=== PATIENT | female | born 1960 | race Caucasian/White ===

== ENCOUNTER → 2017-12-09 11:52 | Outpatient (CLI) | payer OTHER, MEDICAID, SELFPAY ==
[2017-12-09 14:31] LABS: RBC Urine None Seen (0-5/HPF)
[2017-12-09 14:53] LABS: Appearance Urine UA CLEAR; Bilirubin Urine UA NEGATIVE (NEGATIVE); Color Urine UA YELLOW; Glucose Urine UA NEGATIVE (Normal); Ketones Urine UA NEGATIVE (NEGATIVE); Leukocyte Esterase Urine UA 1+ (NEGATIVE); Nitrite Urine UA Negative (Negative); Occult Blood Urine UA TRACE-INTACT (Negative); Protein Urine UA NEGATIVE (Negative); Specific Gravity Urine UA 1.015 (1.000-1.035); Urobilinogen Urine UA 0.2 E.U./dL (0.2)
[2017-12-09 14:58] LABS: Bacteria Urine Moderate (10-30); Culture Indicated Urine Cult Not Indicated; Squamous Epithelial Cell Urine 5-10 /HPF; WBC Urine 10-30/HPF (0-5/HPF)
== END ==
PROVIDERS: Family Provider Family Medicine; PCP Family Medicine; Visit Provider Internal Medicine
DX: R10.9 Unspecified abdominal pain (principal); R30.0 Dysuria
CPT/HCPCS: 81001

== ENCOUNTER → 2017-12-10 09:18 | Outpatient (CLI) | payer OTHER, MEDICAID, SELFPAY | PROVIDERS: Family Provider Family Medicine; PCP Family Medicine; Visit Provider Internal Medicine | DX: R30.0 Dysuria (principal) | CPT/HCPCS: 87077; 87086; 87186 ==

== ENCOUNTER 2017-12-19 09:20 | Emergency (ER) | payer OTHER, MEDICAID, SELFPAY ==
[2017-12-19 09:23] VITALS: BP 156/77; PULSE 97; RESP 14; TEMP 37.2; O2SAT 99; BMI 34.9
[2017-12-19 09:42] LABS: Appearance Urine UA SL CLOUDY; Bilirubin Urine UA NEGATIVE (NEGATIVE); Color Urine UA YELLOW; Glucose Urine UA NEGATIVE (Normal); Ketones Urine UA NEGATIVE (NEGATIVE); Leukocyte Esterase Urine UA 3+ (NEGATIVE); Nitrite Urine UA Negative (Negative); Occult Blood Urine UA TRACE-LYSED (Negative); Protein Urine UA NEGATIVE (Negative); Specific Gravity Urine UA <=1.005 (1.000-1.035); Urobilinogen Urine UA 0.2 E.U./dL (0.2)
[2017-12-19 09:48] LABS: Bacteria Urine Many (>30); Culture Indicated Urine Cult Not Indicated; RBC Urine 1-5/HPF (0-5/HPF); Squamous Epithelial Cell Urine 5-10 /HPF; WBC Urine 30-100/HPF (0-5/HPF)
[2017-12-19 10:29] VITALS: BP 117/64; PULSE 77; RESP 18; TEMP 36.7; O2SAT 100
--- NOTE | 2017-12-19 10:52 | ED_ITS ---
HPI - Female Genitourinary General Chief complaint: Urogenital-Female Stated complaint: UTI History of Present Illness HPI Narrative: HPI 57-year-old female presents for evaluation of recurrent dysuria and urinary frequency of 3 days duration after completing 7 days of macribid for a previously diagnosed UTI, denies flank pain, fevers, chills. No history of kidney stones. M/S/F/SocHx notable for: please see HPI; remainder reviewed with patient and in chart. ROS: Negative constitutional, eye, cardiovascular, pulmonary, GI, , MSK, skin , neurologic, psychiatric, endocrine unless noted in the HPI. Exam HR 77, BP 117/64, RR 18, T 98.1 ?F, SaO2 100 % on room air; at 10:29AM. Gen: Pleasant, non-toxic appearing, resting comfortably. HEENT: NC, AT, PEERL, EOMI. Resp: Clear to auscultation bilaterally, normal work of breathing, no accessory muscle usage. Card: Regular rate and rhythm with no murmurs, rubs, or gallops, extremities warm and well perfused. GI: Non-tender to palpation throughout all quadrants, no focal tenderness at McBurney's point, negative Ramesh's sign, non-distended, no rebound or guarding. : No suprapubic tenderness to palpation. No CVA tenderness to percussion bilaterally. MSK: No visible deformities, strength and tone without visually appreciable deficit. Skin: Normal color with no visible lesions. Neuro: AO x 3, no facial asymmetry, vision and hearing WNL. Psych: Mood and affect appropriate. Labs / Imaging: UA - 3+ leukocyte esterase, negative nitrates, 30-100 WBCs, 5-10 squamous epithelial cells, many bacteria. MDM Previous chart, nursing note, labs, imaging, and vitals reviewed. A: 57-year-old female presents for evaluation of recurrent dysuria and urinary frequency of 3 days duration after completing 7 days of macribid for a previously diagnosed UTI, denies flank pain, fevers, chills. DDx: UTI, ureterolithiasis, pyelonephritis, lobar nephronia, perinephric abscess. Evaluation: history, labs, exam consistent with uncomplicated cystitis, given the absence of flank pain, fevers, or further symptoms strongly doubt ureterolithiasis, lobar nephronia or perinephric abscess. Patient prescribed Keflex 500 mg QID x 10 days and discharge with PCP follow-up recommended. Impression: UTI (please reference below for remainder of encounter information) Related Data Home Medications Medication Instructions Recorded Confirmed cyclobenzaprine 10 mg PO HSP PRN 12/19/17 12/19/17 ranitidine HCl 150 mg PO BID PRN 12/19/17 12/19/17 Previous Rx's Medication Instructions Recorded albuterol sulfate [Ventolin HFA] 1 puff INH Q6HP PRN #1 inh 03/24/17 omeprazole 40 mg PO QDAY #90 cap 04/16/17 Allergies Allergy/AdvReac Type Severity Reaction Status Date / Time hydrocodone [HYDROCODONE] AdvReac Unknown Itching Verified 12/19/17 09:26 PFS Surgical History History of tonsillectomy Status post delivery Status post vaginal hysterectomy (11/27/14) Social History Smoking Status: Former smoker Exam Initial Vital Signs Initial Vital Signs: Vital Signs Temperature 98.9 F 12/19/17 09:23 Pulse Rate 97 H 12/19/17 09:23 Respiratory Rate 14 12/19/17 09:23 Blood Pressure 156/77 H 12/19/17 09:23 Pulse Oximetry 99 12/19/17 09:23 Course Orders Ordered: ED Orders 12/19/17 09:30 Urinalysis and Microscopic Stat Vital Signs - 8 hr 12/19/17 09:23 12/19/17 10:29 Temperature 98.9 F 98.1 F Pulse Rate 97 H 77 Respiratory Rate 14 18 Blood Pressure 156/77 H Blood Pressure [Right Arm] 117/64 Pulse Oximetry 99 100 MDM - Female Genitourinary Lab Data Lab Results 12/19/17 Range/Units 09:30 Urine Color Yellow Urine Appearance Sl cloudy Urine pH 5.0 (4.5-8.0) Ur Specific [place] <=1.005 (1.000-1.035) Urine Protein Negative (Negative) Urine Glucose (UA) Negative (Normal) g/dL Urine Ketones Negative (NEGATIVE) Urine Occult Blood Trace-lysed (Negative) Urine Nitrate Negative (Negative) Urine Bilirubin Negative (NEGATIVE) Urine Urobilinogen 0.2 (0.2) E.U./dL Ur Leukocyte Esterase 3+ H (NEGATIVE) Urine RBC 1-5/hpf (0-5/HPF) Urine WBC 30-100/hpf H (0-5/HPF) Ur Squamous Epith Cells 5-10 /hpf H Urine Bacteria Many (>30) H (None) Ur Culture Indicated? Cult not indicated Micro UA Comment Not Reportable Discharge Plan Departure Prescriptions: No Action albuterol sulfate [Ventolin HFA] 90 MCG/PUFF HFA aerosol inhaler 1 puff INH Q6HP PRNQty: 1 RF: 2 omeprazole 40 MG capsule,delayed release(DR/EC) 40 mg PO QDAY Qty: 90 RF: 3 cyclobenzaprine 10 MG tablet 10 mg PO HSP PRN (Reason: Muscle Pain) RF: 0 ranitidine HCl 150 MG tablet 150 mg PO BID PRN (Reason: gerd) RF: 0
== END 2017-12-19 11:10 | disposition home or self-care (01) ==
PROVIDERS: Emergency Provider Emergency Medicine; PCP Family Medicine
DX: N39.0 Urinary tract infection, site not specified (principal)
CPT/HCPCS: 81001; 99282; 99283

== ENCOUNTER → 2018-07-15 12:48 | Outpatient (CLI) | payer OTHER, MEDICAID, SELFPAY ==
--- NOTE | 2018-07-15 12:52 | DI.US.S_ITS ---
PROCEDURE: US ABDOMEN COMPLETE INDICATIONS: RIGHT UPPER QUADRANT PAIN TECHNIQUE: Real-time scanning was performed of the abdominal and retroperitoneal organs, with image documentation. COMPARISON: [facility], , ABDOMEN COMPLETE, 05/13/2016, 11:37. [facility], [place], HEPATOBILIARY SCAN WITH CCK, 05/19/2016, 8:21. FINDINGS: Liver: Liver is normal in size and demonstrates diffuse increased echotexture. Gallbladder: Again noted is a 4 mm non-mobile hyperechoic nodule along the lateral wall of the gallbladder, consistent with a polyp. It appears unchanged in size compared to the last examination. Biliary ducts: Intrahepatic bile ducts are non-dilated. Extrahepatic bile duct caliber measures 5 mm. Normal is 6-7 mm or less in diameter, or 10 mm or less post-cholecystectomy. Pancreas: The pancreas is suboptimally visualized and demonstrates increased echotexture. Spleen: Spleen is normal in size and homogeneous in echotexture. Kidneys: Kidneys are normal in size and echotexture. Right kidney measures 9.8 cm long; left kidney measures 11.3 cm long. No hydronephrosis or nephrolithiasis. No solid masses. Aorta: Visualized aorta is normal in caliber at less than 3 cm. Iliacs: Proximal common iliac arteries are normal in caliber at less than 2.5 cm. IVC: Intrahepatic inferior vena cava is patent. Miscellaneous: No free abdominal fluid. IMPRESSION: 1. Diffusely increased hepatic echotexture. This finding is most likely secondary to hepatic fatty infiltration although other hepatocellular disease may have a similar appearance. Recommend clinical correlation. 2. Stable 4 mm gallbladder polyp. 3. Pancreas is suboptimally visualized. Dictated by: Orquidea Lockhart M.D. on 07/15/2018 at 16:38 Approved by: Orquidea Lockhart M.D. on 07/15/2018 at 16:46
[2018-07-15 13:45] LABS: Add Manual Diff / Slide Review NO; Basophils Absolute Auto 100 /uL (0-100); Basophils Percent Auto 0.9 % (0-2); Eosinophils Absolute Auto 200 /uL (0-450); Hematocrit 38.2 % (36-46); Hemoglobin 12.3 g/dL (12.0-16.0); Lymphocytes Absolute Auto 3600 /uL (1100-4500); Lymphocytes Percent Auto 45.9 % (25-40); Mean Corpuscular HGB Conc 32.1 % (30-36); Mean Corpuscular Hemoglobin 26.2 PG (26-34); Mean Corpuscular Volume 81.6 fL (80-100); Monocytes Absolute Auto 400 /uL (0-900); Monocytes Percent Auto 5.4 % (3-14); Neutrophils Absolute Auto 3600 /uL (1500-7000); Neutrophils Percent Auto 45.8 % (50-75); Platelet Count 289 X10^3/uL (150-400); Red Blood Cell Count 4.68 X10^6/uL (4.0-5.2); Red Cell Distribution Width 14.7 % (11.6-14.8); White Blood Cell Count 7.8 X10^3/uL (4.5-11.0)
[2018-07-15 16:33] LABS: Alanine Aminotransferase 41 IU/L (9-52); Albumin 4.4 g/dL (3.5-5.0); Alkaline Phosphatase 120 U/L (38-126); Aspartate Aminotransferase 31 IU/L (14-36); BUN Creatinine Ratio 18.3 (6-22); Bilirubin Total 0.6 mg/dL (0.2-1.3); Blood Urea Nitrogen 11 mg/dL (7-17); Calcium 9.8 mg/dL (8.4-10.2); Carbon Dioxide 24 mmol/L (22-32); Chloride 105 mmol/L (98-107); Estimated Glomerular Filt Rate > 60.0 mL/min (>60); Glucose 80 mg/dL (70-100); Potassium 4.2 mmol/L (3.4-5.1); Sodium 140 mmol/L (137-145); Total Protein 7.9 g/dL (6.3-8.2)
[2018-07-15 16:34] LABS: Albumin Globulin Ratio 1.3 (1.0-2.8); Cholesterol 215 mg/dL (140-199); Globulin 3.5 g/dL (1.7-4.1); HDL Cholesterol 48 mg/dL (40-60); HEMOLYSIS 39 (0-50); LDL Cholesterol Calculated 138 mg/dL (<100); Triglycerides 146 mg/dL (35-150)
[2018-07-15 16:41] LABS: TSH w/ Reflex to FT4 1.13 uIU/mL (0.47-4.68)
== END ==
PROVIDERS: PCP Family Medicine; Visit Provider Family Medicine
DX: R10.11 Right upper quadrant pain (principal); K76.0 Fatty (change of) liver, not elsewhere classified; K82.4 Cholesterolosis of gallbladder
CPT/HCPCS: 36415; 76700; 80053; 80061; 84443; 85025

== ENCOUNTER → 2018-08-03 10:08 | Outpatient (CLI) | payer OTHER, MEDICAID, SELFPAY ==
--- NOTE | 2018-08-03 10:10 | DI.MG.S_ITS ---
BILATERAL DIGITAL SCREENING MAMMOGRAM 3D/2D WITH CAD: 08/03/2018 CLINICAL: Routine screening. Family history of breast cancer. Comparison is made to exams dated: 11/15/2014 mammogram - , 11/22/2012 mammogram, and 11/19/2009 mammogram - [facility]. There are scattered fibroglandular elements in both breasts. Current study was also evaluated with a Computer Aided Detection (CAD) system. There are benign calcifications in both breasts. No significant masses, calcifications, or other findings are seen in either breast. There has been no significant interval change. IMPRESSION: There is no mammographic evidence of malignancy. A 1 year screening mammogram is recommended. This exam was interpreted at Station ID: [id number]. NOTE: For mammograms, a report in lay terms will be sent to the patient. Approximately 15% of breast malignancies will not be visualized mammographically. In the management of a palpable breast mass, a negative mammogram must not discourage biopsy of a clinically suspicious lesion. Electronically Signed By: Boris ortega/alix:08/03/2018 11:25:28 letter sent: Normal Exam ACR BI-RADS Category 2: Benign Finding(s) 3342F
== END ==
PROVIDERS: PCP Family Medicine; Visit Provider Family Medicine
DX: Z12.31 Encounter for screening mammogram for malignant neoplasm of breast (principal); Z80.3 Family history of malignant neoplasm of breast
CPT/HCPCS: 77063; 77067

== ENCOUNTER → 2018-08-17 12:42 | Outpatient (CLI) | payer OTHER, MEDICAID, SELFPAY ==
[2018-08-17 13:21] LABS: Influenza A and B by PCR Rapid Negative (Negative)
== END ==
PROVIDERS: PCP Family Medicine; Visit Provider Registered Nurse
DX: R50.9 Fever, unspecified (principal)
CPT/HCPCS: 87400

== ENCOUNTER → 2018-08-24 10:55 | Outpatient (CLI) | payer OTHER, MEDICAID, SELFPAY ==
[2018-08-24 13:01] LABS: Ferritin 31.2 ng/mL (11.1-264)
[2018-08-25 14:41] LABS: Ceruloplasmin 32 mg/dL (18-53)
[2018-08-26 16:03] LABS: Hepatitis A Antibody IgM NONREACTIVE (NONREACTIVE); Hepatitis Acute Panel Interp 0.01; Hepatitis B Core Antibody IgM NONREACTIVE (NONREACTIVE); Hepatitis B Surface Antigen NONREACTIVE (NONREACTIVE); Hepatitis C Antibody NONREACTIVE
[2018-08-26 19:00] LABS: ANA Screen, IFA Negative (Negative)
== END ==
PROVIDERS: PCP Family Medicine; Visit Provider Family Medicine
DX: K76.0 Fatty (change of) liver, not elsewhere classified (principal)
CPT/HCPCS: 36415; 80074; 82390; 82728; 86038

== ENCOUNTER 2018-10-14 07:43 | Day surgery (SDC) | payer OTHER, MEDICAID, SELFPAY ==
[2018-09-13 08:22] VITALS: BMI 34.5
[2018-10-14] VITALS (14 sets, daily range): BP systolic 115–185; BP diastolic 66–94; PULSE 67–95; RESP 7–18; TEMP 36.1–36.6; O2SAT 93–100; BMI 34.0
--- NOTE | 2018-10-14 | PATH_ITS ---
[facility] Accession Number: [id number] . 01 Material submitted: . gallbladder - GALLBLADDER . 02 Diagnosis: Gallbladder, Cholecystectomy: Chronic cholecystitis with cholelithiasis and cholesterolosis. No evidence of dysplasia or malignancy. MRV/10/18/2018 . 02 Electronically signed: . Neris Rodríguez MD, Pathologist NPI- [id number] . 01 Gross description: . Received in formalin, labeled gallbladder, is an opened gallbladder (length-7.5 cm, diameter-2.2 cm) with green smooth shiny serosa and a patent cystic duct. A possible lymph node (0.4 x 0.3 x 0.2 cm) is identified. The lumen contains one pale yellow soft friable calculus (0.4 x 0.3 x 0.2 cm). The mucosa is hernandez-green with rough yellow speckles. The wall is up to 0.1 cm thick. No nodules, masses or lesions are identified. Section code: (A1) cystic duct resection margin and two serial sections from the body; (A2) two longitudinal sections from the fundus; (A3) one intact lymph node. ([id number]) /MRV . 02 Pathologist provided ICD-10: K80.60 . 02 CPT . 285414 Performed at: 01 [facility] [address] [place] [address], [place], [place] [id number] MD Bib Levy MD Phone: [phone] Performed at: 02 [facility] [address] [place], [place] [id number] MD Neris Rodríguez MD Phone: [phone]
--- NOTE | 2018-10-14 08:38 | PM.HP.1 ---
History of Present Illness Date Patient Seen: 10/14/18 Time Patient Seen: 08:38 Chief complaint: [id number] LAP NICOLA Narrative: The patient is a woman with intermittent right upper quadrant pain radiating to her flank accompanied by nausea. She had an ultrasound that suggests she has fatty infiltration of her liver and either a gallbladder polyp or an adherent stone. She is brought in for laparoscopic cholecystectomy. Patient History Medical History Asthma (Chronic) Chronic GERD (Chronic) Esophagitis (Chronic) Gastritis (Chronic) Pelvic prolapse (Chronic) Surgical History History of tonsillectomy Status post delivery Status post vaginal hysterectomy (11/27/14) Family History Mother Hypertension Heart disease Gallstones Father Hypertension Heart disease Grandmother Cancer Diabetes mellitus Grandfather Diabetes mellitus Social History marital status: household members: spouse Smoking Status: Former smoker alcohol intake: current substance use type: does not use Family & Social History Family History Mother Hypertension Heart disease Gallstones Father Hypertension Heart disease Grandmother Cancer Diabetes mellitus Grandfather Diabetes mellitus Social History: household members spouse Tobacco & Substance use: Smoking Status Former smoker alcohol intake current alcohol intake frequency holiday/special occasion Substance Use Type does not use Meds Home Medications Medication Instructions Recorded Confirmed Type omeprazole 40 mg PO QDAY #90 cap 04/16/17 09/13/18 Rx cyclobenzaprine 10 mg tablet 10 mg PO HSP PRN #10 tab 07/14/18 09/13/18 Rx albuterol sulfate HFA 90 1 puff INHALATION Q6HP PRN #1 inh 08/13/18 09/13/18 Rx mcg/actuation aerosol inhaler guaifenesin ER 1,200 mg tablet, 1,200 mg PO Q12H 08/17/18 09/13/18 History extended release 12 hr inhalational spacing device #1 each 08/17/18 08/24/18 Rx prednisone 10 mg tablet See Rx Instructions PO DAILY #40 08/17/18 09/13/18 Rx tab Allergies Allergy/AdvReac Type Severity Reaction Status Date / Time hydrocodone [HYDROCODONE] AdvReac Unknown Itching Verified 08/24/18 08:55 Review of Systems Review of Systems Denies any chest pain or heart problems. Has occasional reflux symptoms. No breathing issues at this time. She did have a cough a couple months ago. No black or bloody bowel movements. No seizures or blackouts. Exam Vital Signs (past 8 hours): - 10/14/18 08:28 Temperature 97.0 F L Pulse Rate 67 Respiratory Rate 14 Blood Pressure 115/79 Oxygen Delivery Method Room Air Narrative Exam Narrative: Very pleasant woman in no apparent distress. Obese. Lungs are clear to auscultation. No rales or rhonchi. Heart regular rate and rhythm without murmur gallop. Abdomen is protuberant and soft. Nontender at this time. No obvious hernias. The patient is alert and oriented x3. Speech rate and content are appropriate. Assessment & Plan Assessment & Plan narrative: Patient with probable symptomatic gallbladder disease and stones. Possible polyp. I discussed lap choly with her. Risks of bleeding, infection, hernia, injury to internal organs or ducts that might require a major operation to repair, and bile leakage were all discussed. She appears to understand and wishes to proceed.
[2018-10-14] MEDS: LACTATED RINGERS 1,000 ML 100 ML IV ×2 (08:40→10:21)
--- NOTE | 2018-10-14 08:42 | PM.PREOP ---
Pre-operative Note Interval Note History & Physical reviewed/Exam performed by Physician: Yes Changes to H&P: No
[2018-10-14] MEDS: CEFAZOLIN 2 GM/100 ML FROZ.PIGGY IV (08:59)
--- NOTE | 2018-10-14 09:48 | SUR.OPER ---
Supine on padded OR bed, head on pillow, arms secured on padded arm boards at <90 degrees abduction, legs uncrossed, safety belt at thigh, tape over blanket over lower legs.
[2018-10-14] MEDS: BUPIVACAINE 0.5% (PF) VIAL 30 ML INJ (09:57)
--- NOTE | 2018-10-14 10:27 | PM.OP.1 ---
Operative Date/Time/Diagnoses Date of procedure: 10/14/18 Time of procedure: 10:20 Pre-op diagnosis: Right upper abdominal pain with an ultrasound suggesting possible polyp. Post-op diagnosis: same (Patient appears to have a stone adherent to the wall of the gallbladder.) Procedure & Clinicians Procedure: Laparoscopic cholecystectomy Same procedure as scheduled: Yes Indications: Symptomatic gallbladder disease Surgeon: Rolo Rocha Click Yes if Unassisted: Yes Anesthesia Type: General Operative Notes Findings: Fairly normal appearing gallbladder with stones. Some cholesterol deposits on the surface of the gallbladder wall Closure Type: primary Specimen(s): other (Gallbladder) Prosthetic devices, grafts, tissues, transplants, or devices: None Estimated Blood Loss (mL): 5 Blood products transfused: none Procedure in detail: The patient was placed supine on the operating room table and underwent general endotracheal anesthesia. The patient was prepped and draped in the usual fashion. Local anesthetic was infiltrated near the umbilicus and curvilinear incision made and carried down through fascia into the peritoneal cavity. Stay sutures of 0 Vicryl were placed in the fascia. A 12 mm port was placed. The abdomen was insufflated. The patient was repositioned. Local anesthetic was infiltrated in 3 areas under the right costal margin and 3 incisions made followed by placing 3 5 mm ports under direct laparoscopic camera vision internally. The gallbladder was grasped and elevated. Dissection was begun near its end. A ductal structure singular nature going directly the gallbladder was out from surrounding structures. Three put clips were placed across it and was divided leaving 2 in the patient. Adjacent to this was another structure that appeared to be the artery. It went directly to the gallbladder. It was handled in divided in and exactly the same way as the duct.. The gallbladder was then dissected from its bed in the liver using cautery. There was no spillage. It was detached and removed through the umbilical port after placing it in a bag. The ports were all removed. The port sites were all irrigated. The stay sutures at the umbilicus were elevated. A 2 0 PDS suture was placed between them. The Vicryl and PDS sutures were then tied. The skin in all areas was closed with interrupted 4 0 Vicryl subcuticular stitches. Steri-Strips and Mastisol were applied. Band-Aids were placed and the patient was awakened, extubated and taken to the recovery area in good condition. After removing the gallbladder was opened and found to contain a stone that appeared to be stuck to the wall. I did not make of her search for a polyp which may also be present. Complications: none Condition: stable Disposition: PACU Plan for aftercare: Follow-up in the office
--- NOTE | 2018-10-14 10:39 | SUR.PHASEI ---
Pt stated I need air, sats in upper 90s on RA. Anterior lobes clear. 4lnc applied for comfort.
[2018-10-14] MEDS: fentaNYL 100 MCG/2 ML INJ 50 MCG IV ×3 (10:42→11:48)
[2018-10-14] MEDS: ALBUTEROL 2.5 MG/3 ML NEB (ADULT) INH (10:48)
--- NOTE | 2018-10-14 10:50 | SUR.PHASEI ---
Pt's breathing reassessed. Had reported dyspnea improved but now reports it has not improved. Albuterol neb provided.
--- NOTE | 2018-10-14 10:59 | SUR.PHASEI ---
Albuterol treatment complete. Pt reported dyspnea improved.
--- NOTE | 2018-10-14 11:13 | SUR.PHASEI ---
Dr Quesada called in OR2, notified regarding pt's continued complaints of SOB. Discussed pt status-o2 sat 985ra, rr 14, lungs clear. Place pt on nc per md and continue to monitor. 2lnc applied.
--- NOTE | 2018-10-14 11:18 | SUR.PHASEI ---
IS provided. Verbal instructions given, return demonstration performed.
--- NOTE | 2018-10-14 11:32 | SUR.PHASEI ---
Pt c/o trouble breathing again, mask applied with 7lo2.
--- NOTE | 2018-10-14 11:36 | SUR.PHASEI ---
Pt reported the o2 mask was helping her breathing.
[2018-10-14] MEDS: OXYCODONE IR 5 MG TABLET PO (11:54)
[2018-10-14] MEDS: ONDANSETRON 4 MG/2 ML INJ IV (12:19)
--- NOTE | 2018-10-14 12:41 | SUR.PHASEII ---
pt c/o nausea x1 while in phase II. Medicated with IV zofran. pt reported no longer nausated after medication given.
== END 2018-10-14 12:41 | disposition home or self-care (01) ==
PROVIDERS: PCP Family Medicine; Visit Provider Specialist
PROC: 0FT44ZZ Resection of Gallbladder, Percutaneous Endoscopic Approach (ICD-10-PCS; CPT 47562; principal; 2018-10-14 08:45)
DX: K80.10 Calculus of gallbladder with chronic cholecystitis without obstruction (principal); J45.909 Unspecified asthma, uncomplicated
CPT/HCPCS: 47562; J0690; J1885; J2405; J2704; J3010; J7613

== ENCOUNTER → 2019-11-24 08:14 | Outpatient (CLI) | payer OTHER, MEDICAID, SELFPAY ==
[2019-11-24 10:21] LABS: Add Manual Diff / Slide Review NO; Basophils Absolute Auto 100 /uL (0-100); Basophils Percent Auto 0.7 % (0-2); Eosinophils Absolute Auto 200 /uL (0-450); Eosinophils Percent Auto 2.1 % (2-4); Hematocrit 39.3 % (36-46); Hemoglobin 12.5 g/dL (12.0-16.0); Lymphocytes Absolute Auto 2700 /uL (1100-4500); Lymphocytes Percent Auto 33.9 % (25-40); Mean Corpuscular HGB Conc 31.9 % (30-36); Mean Corpuscular Hemoglobin 27.2 PG (26-34); Mean Corpuscular Volume 85.4 fL (80-100); Monocytes Absolute Auto 600 /uL (0-900); Monocytes Percent Auto 6.9 % (3-14); Neutrophils Absolute Auto 4500 /uL (1500-7000); Neutrophils Percent Auto 56.4 % (50-75); Platelet Count 295 X10^3/uL (150-400); Red Cell Distribution Width 14.3 % (11.6-14.8); White Blood Cell Count 8.1 X10^3/uL (4.5-11.0)
[2019-11-24 10:27] LABS: Alanine Aminotransferase 18 IU/L (<35); Albumin 4.1 g/dL (3.5-5.0); Albumin Globulin Ratio 1.5 (1.0-2.8); Alkaline Phosphatase 121 U/L (38-126); Aspartate Aminotransferase 20 IU/L (14-36); BUN Creatinine Ratio 14.8 (6-22); Bilirubin Total 0.8 mg/dL (0.2-1.3); Blood Urea Nitrogen 9 mg/dL (7-17); Calcium 9.9 mg/dL (8.4-10.2); Carbon Dioxide 23 mmol/L (22-32); Chloride 108 mmol/L (98-107); Cholesterol 192 mg/dL (140-199); Estimated Glomerular Filt Rate > 60.0 mL/min (>60); Globulin 2.7 g/dL (1.7-4.1); Glucose 85 mg/dL (70-100); HDL Cholesterol 51 mg/dL (40-60); HEMOLYSIS < 15 (0-50); LDL Cholesterol Calculated 116 mg/dL (<100); Potassium 4.4 mmol/L (3.4-5.1); Sodium 140 mmol/L (137-145); Total Protein 6.8 g/dL (6.3-8.2); Triglycerides 126 mg/dL (35-150)
[2019-11-24 10:56] LABS: Thyroid Stimulating Hormone 2.28 uIU/mL (0.47-4.68)
== END ==
PROVIDERS: PCP Family Medicine; Referring Provider Family Medicine; Visit Provider Family Medicine
DX: E78.5 Hyperlipidemia, unspecified (principal); K21.9 Gastro-esophageal reflux disease without esophagitis; Z13.6 Encounter for screening for cardiovascular disorders
CPT/HCPCS: 36415; 80053; 80061; 84443; 85025

== ENCOUNTER → 2020-05-21 17:01 | Outpatient (CLI) | payer OTHER, MEDICAID, SELFPAY | PROVIDERS: PCP Family Medicine; Visit Provider Physician Assistant | DX: N34.3 Urethral syndrome, unspecified (principal) | CPT/HCPCS: 87086 ==

== ENCOUNTER → 2021-12-05 13:07 | Outpatient (CLI) | payer OTHER, MEDICAID, SELFPAY ==
--- NOTE | 2021-12-05 | DI.MG.S_ITS ---
BILATERAL DIGITAL SCREENING MAMMOGRAM 3D/2D WITH CAD: 12/05/2021 CLINICAL: Routine screening. Family history of breast cancer. Comparison is made to exams dated: 08/03/2018 mammogram, 11/15/2014 mammogram - [facility], and 11/22/2012 mammogram - [facility]. There are scattered fibroglandular elements in both breasts. Current study was also evaluated with a Computer Aided Detection (CAD) system. There are benign calcifications in both breasts. No significant masses, calcifications, or other findings are seen in either breast. There has been no significant interval change. IMPRESSION: BENIGN There is no mammographic evidence of malignancy. A 1 year screening mammogram is recommended. Based on the Tyrer Cuzick model (a risk assessment model) the patient's lifetime risk is 11.9% and her 10 year risk is 4.9%. According to the ACR, ACS, and NCCN guidelines, an annual breast MRI exam along with mammogram is recommended if the patient's lifetime risk is 20% or greater. This exam was interpreted at Station ID: [id number]. NOTE: For mammograms, a report in lay terms will be sent to the patient. Approximately 15% of breast malignancies will not be visualized mammographically. In the management of a palpable breast mass, a negative mammogram must not discourage biopsy of a clinically suspicious lesion. Electronically Signed By: Rafat wylie/alix:12/05/2021 14:58:03 letter sent: Normal Exam ACR BI-RADS Category 2: Benign Finding(s) 3342F
== END ==
PROVIDERS: PCP Family Medicine; Referring Provider Family Medicine; Visit Provider Family Medicine
DX: Z12.31 Encounter for screening mammogram for malignant neoplasm of breast (principal); Z80.3 Family history of malignant neoplasm of breast
CPT/HCPCS: 77063; 77067

== ENCOUNTER → 2021-12-24 07:00 | Outpatient (CLI) | payer OTHER, MEDICAID, SELFPAY ==
--- NOTE | 2021-12-24 07:01 | DI.US.S_ITS ---
PROCEDURE: US PELVIC COMPLETE INDICATIONS: FAMILY HISTORY OVARIAN CANCER TECHNIQUE: Real-time scanning was performed of the pelvic organs, with image documentation. Additional endovaginal scanning was necessary due to incomplete visualization of the adnexal and endometrial structures by transabdominal scanning. COMPARISON: None. FINDINGS: Uterus: The uterus is surgically absent. Ovaries: The ovaries are not visualized. Other: No pathologic free abdominal or pelvic fluid. IMPRESSION: Markedly limited study. The ovaries are not visualized. If further characterization is warranted, gynecologic protocol MRI could be used. We strive to produce accurate, complete, and clear reports of imaging services. To assist us in improving patient care, this report was composed using standard report templates and voice recognition software. Therefore, it may contain abnormal punctuation, insertions and/or omissions. Occasional wrong-word or sound-alike substitutions may occur. Though we review the report and make efforts to correct it, we do recommend that the report be read carefully in proper context to recognize any text inaccuracies. Dictated by: Felisa Awad M.D. on 12/24/2021 at 9:07 Approved by: Felisa Awad M.D. on 12/24/2021 at 9:09
[2021-12-24 08:46] LABS: Add Manual Diff / Slide Review NO; Basophils Absolute Auto 100 /uL (0-100); Basophils Percent Auto 0.7 % (0-2); Eosinophils Absolute Auto 200 /uL (0-450); Eosinophils Percent Auto 2.2 % (2-4); Hematocrit 38.1 % (36-46); Hemoglobin 12.5 g/dL (12.0-16.0); Lymphocytes Absolute Auto 2200 /uL (1100-4500); Lymphocytes Percent Auto 28.1 % (25-40); Mean Corpuscular HGB Conc 32.8 % (30-36); Mean Corpuscular Hemoglobin 27.5 PG (26-34); Mean Corpuscular Volume 83.9 fL (80-100); Monocytes Absolute Auto 500 /uL (0-900); Neutrophils Absolute Auto 4900 /uL (1500-7000); Platelet Count 270 X10^3/uL (150-400); Red Blood Cell Count 4.54 X10^6/uL (4.0-5.2); Red Cell Distribution Width 13.7 % (11.6-14.8); White Blood Cell Count 7.8 X10^3/uL (4.5-11.0)
[2021-12-24 09:15] LABS: Alanine Aminotransferase 24 IU/L (<35); Albumin 3.9 g/dL (3.5-5.0); Albumin Globulin Ratio 1.3 (1.0-2.8); Alkaline Phosphatase 118 U/L (38-126); Aspartate Aminotransferase 22 IU/L (14-36); BUN Creatinine Ratio 13.8 (6-22); Bilirubin Total 0.7 mg/dL (0.2-1.3); Blood Urea Nitrogen 9 mg/dL (7-17); C-Reactive Protein Quant 1.3 mg/dL (<1.0); Calcium 9.6 mg/dL (8.4-10.2); Carbon Dioxide 28 mmol/L (22-32); Chloride 106 mmol/L (98-107); Cholesterol 197 mg/dL (140-199); Estimated Glomerular Filt Rate > 60 mL/min (>60); Glucose 104 mg/dL (80-110); HDL Cholesterol 49 mg/dL (40-60); HEMOLYSIS < 15 (0-50); LDL Cholesterol Calculated 123 mg/dL (<100); Potassium 4.4 mmol/L (3.4-5.1); Sodium 142 mmol/L (137-145); Total Protein 6.9 g/dL (6.3-8.2); Triglycerides 126 mg/dL (35-150)
[2021-12-24 09:41] LABS: TSH w/ Reflex to FT4 1.25 uIU/mL (0.47-4.68)
[2021-12-24 10:04] LABS: Vitamin B12 438 pg/mL (239-931)
== END ==
PROVIDERS: PCP Family Medicine; Referring Provider Family Medicine; Visit Provider Family Medicine
DX: K76.0 Fatty (change of) liver, not elsewhere classified (principal); N20.0 Calculus of kidney; K21.9 Gastro-esophageal reflux disease without esophagitis; R53.83 Other fatigue; Z80.41 Family history of malignant neoplasm of ovary
CPT/HCPCS: 36415; 76830; 76856; 80053; 80061; 82607; 84443; 85025; 86140

== ENCOUNTER 2024-05-03 06:55 | Day surgery (SDC) | payer OTHER, SELFPAY ==
[2024-05-03 07:52] VITALS: BP 121/76; PULSE 76; RESP 18; TEMP 36.5; O2SAT 96
--- NOTE | 2024-05-03 08:10 | P.HP_ITS ---
History of Present Illness History of Present Illness Date Patient Seen: 05/03/24 Time Patient Seen: 08:10 Chief complaint: Screening Colonoscopy Narrative: Jennifer is a 64-year-old woman here for colonoscopy. Her last was 10 years ago and was normal. She has a son with FAP syndrome. [facility] Medical History Left flank pain Pain of right great toe Pelvic prolapse Chronic GERD Esophagitis Gastritis Asthma Dysuria Atypical chest pain Surgical History Status post vaginal hysterectomy (11/27/14) Status post delivery History of tonsillectomy Family History Mother Hypertension Heart disease Gallstones Father Hypertension Heart disease Grandmother Cancer Diabetes mellitus Grandfather Diabetes mellitus Social History marital status: household members: spouse Smoking Status: Former smoker alcohol intake: current substance use type: does not use Meds Home Medications and Allergies Home Medications Medication Instructions Recorded Confirmed Type albuterol sulfate 90 mcg/actuation 2 puff inhalation Q4-6H #8.5 grams 02/16/24 05/03/24 Rx aerosol inhaler peg 3350-electrolytes 236 240 ml PO Q10M #4,000 mL 03/30/24 Rx gram-22.74 gram-6.74 gram-5.86 gram solution (Golytely) semaglutide (weight loss) 0.5 0.5 mg SUBCUT WEEKLY 05/03/24 05/03/24 History mg/0.5 mL subcutaneous pen injector Allergies Allergy/AdvReac Type Severity Reaction Status Date / Time hydrocodone [HYDROCODONE] AdvReac Unknown Itching Verified 02/16/24 16:11 Exam Vital Signs (past 8 hours): - 05/03/24 07:52 Temperature 97.7 F Pulse Rate 76 Respiratory Rate 18 Blood Pressure 121/76 Pulse Oximetry 96 Oxygen Delivery Method Room Air Oxygen Delivery Method Room Air Const General: healthy appearing Resp Effort & Inspection: normal respiratory effort Assessment & Plan Assessment and plan (1) Colon cancer screening: Status: Acute Plan Colonoscopy Time-Based Coding :: [TOTAL MINUTES] spent with patient and on the chart (including review of chart, obtaining history, exam, reviewing outside data, placing orders, documenting exam and treatment plan, and counseling patient) on [DATE].
--- NOTE | 2024-05-03 08:46 | PM.OP.COLON ---
Operative Date/Time/Diagnoses Date of procedure: 05/03/24 Time of procedure: 08:46 Pre-op diagnosis: Colon cancer screening Post-op diagnosis: same Procedure & Clinicians Study performed: Colonoscopy Same procedure as scheduled: Yes Surgeon: Kyler Monte Procedure Notes Procedure in detail: Surgeon: Kyler Monte MD Anesthesia: Rubi Franz CRNA Procedure: The patient was brought to the endoscopy suite, placed in left lateral decubitus position. The patient was connected to monitoring devices. A time-out was performed. Sedation was administered. Once the patient was adequately sedated, a digital rectal exam was performed and was normal. The scope was then inserted and advanced to the cecum where the appendiceal orifice was identified and photographed. The scope was then slowly withdrawn over greater than 6 minutes. The mucosa was thoroughly inspected. No abnormalities were found. The scope was retroflexed in the rectum. The scope was straightened and removed. The patient was awakened and brought to recovery. Scope withdrawal time: 10 minutes Sedation time: 20 minutes EBL: 0 Findings: Normal colon Post-procedure Recommendations: Colonoscopy in 10 years Disposition: PACU
[2024-05-03 08:47] VITALS: BP 105/75; PULSE 98; RESP 19; TEMP 36.6; O2SAT 97
[2024-05-03 08:52] VITALS: BP 111/71; PULSE 88; RESP 14; O2SAT 99
[2024-05-03 08:56] VITALS: BP 119/71; PULSE 75; RESP 14; O2SAT 100
[2024-05-03 09:04] VITALS: BP 118/74; PULSE 75; RESP 16; TEMP 36.6; O2SAT 99
== END 2024-05-03 09:11 | disposition home or self-care (01) ==
PROVIDERS: Surgery; PCP Family Medicine; Referring Provider Surgery; Visit Provider Surgery
PROC: 0DJD8ZZ Inspection of Lower Intestinal Tract, Via Natural or Artificial Opening Endoscopic (ICD-10-PCS; CPT 45378; principal; 2024-05-03 08:15)
DX: Z12.11 Encounter for screening for malignant neoplasm of colon (principal)
CPT/HCPCS: 45378; J2405; J2704

== ENCOUNTER → 2024-06-13 15:54 | Outpatient (CLI) | payer OTHER, SELFPAY ==
--- NOTE | 2024-06-13 15:55 | DI.MG.S_ITS ---
BILATERAL DIGITAL SCREENING MAMMOGRAM 3D/2D WITH CAD: 06/13/2024 CLINICAL: Routine screening. Family history of breast cancer. Comparison is made to exams dated: 12/05/2021 mammogram, 08/03/2018 mammogram, and 11/15/2014 mammogram - [facility]. There are scattered areas of fibroglandular density (category b / 25%-50% glandular tissue). Current study was also evaluated with a Computer Aided Detection (CAD) system. There are benign calcifications in both breasts. No significant masses, calcifications, or other findings are seen in either breast. There has been no significant interval change. IMPRESSION: BENIGN There is no mammographic evidence of malignancy. A 1 year screening mammogram is recommended. Based on the Tyrer Cuzick model (a risk assessment model) the patient's lifetime risk is 11.0% and her 10 year risk is 5.0%. According to the ACR, ACS, and NCCN guidelines, an annual breast MRI exam along with mammogram is recommended if the patient's lifetime risk is 20% or greater. This exam was interpreted at Station ID: [id number]. NOTE: For mammograms, a report in lay terms will be sent to the patient. Approximately 15% of breast malignancies will not be visualized mammographically. In the management of a palpable breast mass, a negative mammogram must not discourage biopsy of a clinically suspicious lesion. Electronically Signed By: Boris ortega/alix:06/14/2024 07:43:52 letter sent: Normal Exam ACR BI-RADS Category 2: Benign
== END ==
PROVIDERS: PCP Family Medicine; Referring Provider Family Medicine; Visit Provider Family Medicine
DX: Z12.31 Encounter for screening mammogram for malignant neoplasm of breast (principal); Z80.3 Family history of malignant neoplasm of breast
CPT/HCPCS: 77063; 77067

== ENCOUNTER → 2024-08-01 06:47 | Outpatient (CLI) | payer OTHER, SELFPAY ==
[2024-08-01 08:03] LABS: Add Manual Diff / Slide Review NO; Basophils Absolute Auto 200 /uL (0-100); Basophils Percent Auto 2.5 % (0-2); Eosinophils Absolute Auto 200 /uL (0-450); Eosinophils Percent Auto 2.6 % (2-4); Hemoglobin 14.2 g/dL (12.0-16.0); Lymphocytes Absolute Auto 1100 /uL (1100-4500); Lymphocytes Percent Auto 15.5 % (25-40); Mean Corpuscular HGB Conc 33.1 % (30-36); Mean Corpuscular Hemoglobin 29.6 PG (26-34); Mean Corpuscular Volume 89.5 fL (80-100); Monocytes Absolute Auto 300 /uL (0-900); Monocytes Percent Auto 3.8 % (3-14); Neutrophils Absolute Auto 5500 /uL (1500-7000); Neutrophils Percent Auto 75.6 % (50-75); Platelet Count 308 X10^3/uL (150-400); Red Cell Distribution Width 13.3 % (11.6-14.8); White Blood Cell Count 7.3 X10^3/uL (4.5-11.0)
[2024-08-01 08:28] LABS: Alanine Aminotransferase 18 IU/L (<35); Albumin Globulin Ratio 1.5 (1.0-2.8); Alkaline Phosphatase 67 U/L (38-126); Aspartate Aminotransferase 18 IU/L (14-36); BUN Creatinine Ratio 16.7 (6-22); Bilirubin Total 0.9 mg/dL (0.2-1.3); Blood Urea Nitrogen 13 mg/dL (7-17); Calcium 10.6 mg/dL (8.4-10.2); Carbon Dioxide 23 mmol/L (22-32); Chloride 106 mmol/L (98-107); Cholesterol 201 mg/dL (140-199); Estimated Glomerular Filt Rate > 60 mL/min (>60); Globulin 2.7 g/dL (1.7-4.1); Glucose 93 mg/dL (80-110); HDL Cholesterol 44 mg/dL (40-60); HEMOLYSIS < 15 (0-50); LDL Cholesterol Calculated 128 mg/dL (<100); Potassium 4.4 mmol/L (3.4-5.1); Sodium 138 mmol/L (137-145); Total Protein 6.7 g/dL (6.3-8.2); Triglycerides 144 mg/dL (35-150)
[2024-08-01 08:57] LABS: TSH w/ Reflex to FT4 1.08 uIU/mL (0.47-4.68)
== END ==
PROVIDERS: PCP Family Medicine; Referring Provider Family Medicine; Visit Provider Family Medicine
DX: K76.0 Fatty (change of) liver, not elsewhere classified (principal); Z13.1 Encounter for screening for diabetes mellitus; Z13.220 Encounter for screening for lipoid disorders; Z13.29 Encounter for screening for other suspected endocrine disorder
CPT/HCPCS: 36415; 80053; 80061; 84443; 85025

== ENCOUNTER 2025-03-20 06:44 | Day surgery (SDC) | payer OTHER, SELFPAY ==
--- NOTE | 2025-02-28 11:46 | P.HPOB_ITS ---
History of Present Illness History of Present Illness Narrative: Jennifer Giordano is a 64 year old female Date of procedure:?? 03-20-2025 Preoperative diagnosis:? 1. 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 2. She also desires prophylactic oophorectomy. Prior right oophorectomy, desires removal of left ovary and tube, and any residual right tube / ovary. Fam hx ovarian CA. 3. prior sling, but at risk for recurrent stress incontinence Planned Procedure:?? robotic laparoscopic sacral colpopexy, robotic laparoscopic left salpingo- oophorectomy, posterior colporrhaphy with levator plication, cystoscopy Possible mid urethral sling - unlikely given prior sling. Postop Meds Tylenol 1000 mg, ?3 times a day ? Motrin 400 mg , 3 times a day Oycodone 5 mg,? take 1 pill every 4-6 hr as needed, # 15? Colace,? 1 pill BID, for constipation CC: recurrence prolapse HPI: 64-year-old female who presents for evaluation of above complaint. She reports onset of symptoms 10 years ago. She considers this a Moderate problem. She initially had prolapse in 2014. She underwent surgery at that time vaginal hysterectomy, A&P repair, TVT sling. The surgery failed within about 1 year and she has been managed since with a ring pessary. Over the last few months, she has been having worsening prolapse symptoms. She is having bulge symptoms with a bulge the size of a golf ball, incomplete bladder emptying, incomplete defecation, strain for bowel movement, splinting for bowel movements, pelvic pressure and heaviness. She is considering surgery to manage her prolapse. We discussed larger pessaries but these might be difficult for her to remove, and this is a problem because she is still sexually active. She has no leaking with stress incontinence triggers. She does leak once a day, small leak with urgency triggers, typically a full bladder or running water putting the can the door. She voids every 2 hours in the day and once at night. No hematuria, no UTI. She is considering starting an overactive bladder medication. She uses HRT with estrogen and testosterone pellets. She uses some include tied. No other significant medical issues. Healthy active female. prior hyst -yes -x5 c-sec -x1 Pelvic Floor Review of Systems: Stress Urinary Incontinence symptoms (DAKOTAH): 0 Triggers include: 0 Urge Incontinence symptoms (Urge UI): Once a day Triggers include: Full bladder with urge, running water, de paz-in-door Pads: She wears 0 pads Overactive Bladder symptoms (OAB): Frequency: Every 2 hours Nocturia: X1 Urgency: Yes Prior incontinence treatment includes: Medical: No Surgical: Yes, TVT sling Kegels: Yes hysical therapy: No Pessary: No, for incontinence, does use a pessary for prolapse Diet / Fluids: Fluid restriction: No Excessive fluids: No Pain symptoms: Painful bladder: No Dysuria: No Dyspareunia: No Dysmenorrhea: No Urinary Risk Factors UTI?s, recurrent: No Hematuria: No Kidney Stones: No Tobacco use: No Pelvic Organ Prolapse (POP) symptoms: Bulge: Yes Pressure and /or Heaviness: Yes Splint for defecation or voiding: Yes Voiding dysfunction: Abnormal stream: No Strain to void: No Incomplete emptying: Yes Voiding difficulty: No Retention: No Bowel Function: Constipation: No Strain to defecate: No Fiber: None Laxatives: No Fecal Incontinence: Liquid stool: No Narrative ROS Narrative: General Review of Systems: Constitutional, CV, Endo, Musc-skel, Eyes, Cancer, Skin, Breast, GI, Heme/Lymph, Psych, Urinary, Neuro, Sheet Metal Worker Maintenance, Resp, Sexual: Pertinent positives listed above in HPI All others reviewed and negative. All reviewed on patient questionnaire. . . PFSH Medical History Left flank pain Pain of right great toe Pelvic prolapse Chronic GERD Esophagitis Gastritis Asthma Dysuria Atypical chest pain Surgical History Status post vaginal hysterectomy (11/27/14) Status post delivery History of tonsillectomy Family History Mother Hypertension Heart disease Gallstones Father Hypertension Heart disease Grandmother Cancer Diabetes mellitus Grandfather Diabetes mellitus Social History marital status: household members: spouse Tobacco & Substance Use Smoking Status: Former smoker alcohol intake: current substance use type: does not use UroGyn Exam General: healthy, alert, coherent, no acute distress, cooperative, nontoxic Pulmonary: normal breathing, no distress Abdomen: soft, no mass, non-distended, no hernia, non-tender Vulva: Normal labia majora, labia minora, introitus, and clitoris, non-tender Urethra meatus: normal, no discharge Perineum: Normal, non-tender Urethra: No mass, non-tender Bladder: no mass, non-tender Vagina: No lesions, no discharge, mi atrophy, non-tender Prolapse stage II prolapse, cystocele, large rectocele, vault prolapse . She needs robotic laparoscopic sacral colpopexy and posterior colporrhaphy with levator plication Levators: Non-tender, Hysterectomy Bimanual: no mass, no adnexal mass, non-tender Anus: No lesion, non-tender, no hemorrhoid Empty Cough Stress test: Neg PVR: 15 mL by catheter Urethral angle hypermobile: Yes pOP-Q Exam: Aa: 0 Ba: 0 Ap: 0 Bp: 0, large internal rectocele bulge, 5 cm in size, need levator plication C: -6 D: TVL: 10 GH: 3 PB: 3 Introitus size: 2 fingerbreadths Cystocele stage: 2 Rectocele stage: 2 Uterine/Vault Prolapse Stage: 1-2 Assessment & Plan (1) Vaginal vault prolapse: Status: Acute (2) Cystocele, midline: Status: Acute (3) OAB (overactive bladder): Status: Acute (4) Rectocele: Status: Acute Medications: New oxybutynin chloride ER 10 mg PO DAILY 30 tabs 6RF Assessment and Plan Patient counseled regarding above conditions. Educational materials given to patient. 1. 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 This diagnosis and its etiology was discussed with the patient. Treatment options were discussed including: expectant management, pessary trial, and surgical intervention. We briefly discussed risks and benefits of surgery. All surgery for prolapse is not 100% successful and there is a chance of recurrence or failure. Current using a pessary size under 3 and no longer wants to keep using his she desires surgery She also desires prophylactic oophorectomy. Previously had right ovary removed. Still has left tube and ovary. Reports her mother had ovarian cancer. So she wants ovary out my recommendation = robotic laparoscopic sacral colpopexy, robotic laparoscopic left salpingo- oophorectomy, posterior colporrhaphy with levator plication, cystoscopy Possible mid urethral sling - unlikely given prior sling. see below for counseling 2. Urethral hypermobility She is at risk for postoperative stress incontinence from the prolapse repair. Studies show that in women with severe prolapse of the anterior vaginal wall, 25% will have significant stress incontinence, following prolapse repair surgery. So her risk of finding stress incontinence, as below, is 25%. Will plan to diagnose stress incontinence intra-operatively by filling the bladder with 200- 300 cc of fluid, and then using a crede maneuver to see if there is leakage of fluid from the urethra. If there is leakage, then stress incontinence will be diagnosed, and she will be treated with a mid urethral sling. 3. Overactive bladder and urge incontinence. This diagnosis and its etiology was discussed with the patient. Treatment options were discussed including: Behavior changes ( Limit fluid intake, Avoiding fluid intake 3 hours before bedtime, Avoiding bladder irritants / follow bladder diet, Bladder training exercises), Kegel / pelvic floor muscle exercises, OAB Medications, and procedures to include: bladder botox A injections, Interstim, and PTNS. OAB handout given. Bladder Diet handout given (Decrease caffeine, decrease acidic foods, decrease tobacco) Kegel handout given Trial of oxybutynin XL 10 mg a day. She prefers to start this now to see if this helps with her urge incontinence symptoms Follow-up: preop , likely will have surgery later this fall or winter Surgical Counselling Note Patient seen for surgical counselling.? She desires surgical repair. Please see? H & P for exam and discussion. Date of procedure:?? 03-20-2025 Preoperative diagnosis:? 1. 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 2. She also desires prophylactic oophorectomy. Prior right oophorectomy, desires removal of left ovary and tube, and any residual right tube / ovary. Fam hx ovarian CA. Planned Procedure:?? robotic laparoscopic sacral colpopexy, robotic laparoscopic left salpingo- oophorectomy, posterior colporrhaphy with levator plication, cystoscopy Possible mid urethral sling - unlikely given prior sling. Postop Meds Tylenol 1000 mg, ?3 times a day? Motrin 400 mg , 3 times a day Oycodone 5 mg,? take 1 pill every 4-6 hr as needed, # 15? Colace,? 1 pill BID, for constipation Patient counseled extensively about the Risks, Benefits, and Alternatives to surgery.? She was offered the opportunity to ask any questions, and all questions were answered. ? Surgical Risks include: Bleeding, Hemorrhage, Transfusion, Infection (especially wound or bladder), Injury to adjacent organs (especially bladder, ureter, bowel, blood vessels, nerves), Postop or Chronic Pain, need for Reoperation, and Life-threatening event (especially M.I., CVA, PE, DVT). Procedure Risks include: Failure to Cure condition, Recurrence of condition months or years later, Urinary incontinence, Voiding dysfunction or Urinary Retention with prolonged catheter use, Poor wound healing, Erosions of any mesh or graft used, Dyspareunia, Vaginal scarring or narrowing, Need for additional surgery (immediate or delayed).? The expected cure and improvement and failure rates were discussed. Patient counseled to avoid the following for 6 weeks after surgery: (1) Impact sports (like running or jumping), walking and stairs OK (2) Lifting over 20# (3) Sexual intercourse No limits after 6 weeks. ? Good exercise tolerance, > 4 Mets. Her current medications were reviewed, and instructions given over which to use and which to discontinue before surgery.? Post-operative care instructions reviewed.? We discussed post-operative pain: Pain should be in the mild-moderate range, but can be moderate-severe for the first few days.?? Prescriptions will typically be given for (1) acetaminophen (Tylenol) and (2) non-steroidal anti-inflammatory drug (NSAID, like Motrin or Naprosyn), use both together, around the clock. Prescription will also be given for a (3) narcotic pain medication. Use the narcotic as needed, as a booster to the Tylenol and NSAID. You might need 0-4 narcotic pills a day typically. The narcotic will only be needed for a few days.?? Gradually use less of the narcotic, but continue the Tylenol and NSAID.? After a few days, the narcotic should no longer be needed, and only the Tylenol and NSAID will be needed.? Warm packs or cold packs can also be used for pain.??Do not drive for as long as you are using the narcotic pain medication? - this should only be a few days.?? Constipation is associated with use of narcotic pain medications, and can be improved with use of a stool softener, or fiber, or a mild laxative.? If you are sent home from the hospital with a Logan Catheter in place:? please call the office on the day after surgery We will usually remove the catheter 2-4 days after surgery: a. You will perform an at home Logan catheter removal -or- b. You will come in to the office for a voiding trial, (For some unusual surgeries, we might leave the catheter in for up to 2 weeks, and then remove it.) Instructions for at home Logan catheter removal..... For at-home Logan catheter removal, this can be done on postop day 2 or 3 or 4, depending on various factors. 1. At 6 or 7 a.m., have the patient cut the Logan catheter with scissors, while standing in a shower or bath tub. a. Cut the catheter right in the middle of the tubing, about 6 inches from the body. b. The sterile water that is inside the Logan balloon will leak all over the floor of the shower or bath tub. This is expected. c. The catheter will either fall out of the urethra, or just gently pull on it and it will come out. 2. Now, the bladder will gradually fill up over the next few hours. 3. Go ahead and empty the bladder when you feel an urge to void. Please note how strong the urine stream is. a. If the urine stream is normal or close to normal, then everything is good to go. b. If the urine stream is slow or you can not void, then return to the clinic in the afternoon. We will place another Logan catheter. We will repeat the voiding trial in 3-4 days. All of her questions were answered Josiah Mclain MD UroGynecology & Pelvic Reconstructive Surgery [facility] Medical History (Updated 01/04/25 @ 09:12 by Josiah Mclain MD) Rectocele OAB (overactive bladder) Cystocele, midline Left flank pain Pain of right great toe Pelvic prolapse Chronic GERD Esophagitis Gastritis Asthma Dysuria Atypical chest pain Surgical History (Updated 08/04/24 @ 16:16 by Jackie Ogden MA) Status post vaginal hysterectomy (11/27/14) Status post delivery History of tonsillectomy Family History Mother Hypertension Heart disease Gallstones Father Hypertension Heart disease Grandmother Cancer Diabetes mellitus Grandfather Diabetes mellitus Social History marital status: household members: spouse Smoking Status: Former smoker alcohol intake: current substance use type: does not use Meds Home Medications and Allergies Home Medications ?Medication ?Instructions ?Recorded ?Confirmed ?Type albuterol sulfate 90 mcg/actuation 2 puff inhalation Q 4-6H #8.5 grams 02/16/24 02/28/25 Rx aerosol inhaler semaglutide (weight loss) 0.5 0.5 mg SUBCUT WEEKLY 02/28/25 History mg/0.5 mL subcutaneous pen injector progesterone micronized 200 mg 200 mg PO ONCE PM 08/0402/28/25 History capsule oxybutynin chloride 10 mg 10 mg PO DAILY #30 tabs 09/0 07/2602/28/25 Rx tablet,extended release 24 hr ondansetron HCl 8 mg tablet 8 mg PO Q8H PRN 02/28/25 1 History oxycodone 5 mg tablet 5 mg PO Q8H PRN pain #15 tab s 02/28/25 02/28/25 Rx Allergies Allergy/AdvReac Type Severity Reaction Status Date / Time hydrocodone (HYDROCODONE) AdvReac Unknown Itching Verified 02/28/25 15:49 Assessment & Plan Time-Based Coding :: [TOTAL MINUTES] spent with patient and on the chart (including review of chart, obtaining history, exam, reviewing outside data, placing orders, documenting exam and treatment plan, and counseling patient) on [DATE].
[2025-03-01 12:32] VITALS: BMI 25.6
[2025-03-20] VITALS (12 sets, daily range): BP systolic 107–137; BP diastolic 58–77; PULSE 69–113; RESP 11–28; TEMP 36.1–36.4; O2SAT 95–99
--- NOTE | 2025-03-20 | PATH_ITS ---
[facility] Accession Number: [id number] No. of containers..01 Tissue . 01 Material submitted: . ovary - LEFT FALLOPIAN TUBE AND OVARY . 01 Diagnosis: LEFT FALLOPIAN TUBE AND OVARY, LEFT SALPINGO-OOPHORECTOMY: Histologically unremarkable ovary. Fimbriated fallopian tube with benign paratubal cysts, otherwise unremarkable. Negative for malignancy. AMARILYS 03/29/2025 1528 Local . 01 Electronically signed: . Pamella Quintero DO, Pathologist NPI- [id number] . 01 Gross description: . Received in formalin with two patient identifiers, and A. Left fallopian tube and left ovary is a 3-gram adnexa consisting of a 2.1 x 1.0 x 0.7 cm aggregate of disrupted ovarian tissue fragments and a separate, 3.5 cm long by 0.5 cm diameter fallopian tube. The cut surface of the ovary is yellow-hernandez and grossly unremarkable. The fallopian tube is distorted by multiple 0.5-1.0 cm paratubal cysts. The cut surface is hernandez with a pinpoint lumen. Welt Cutter sections are submitted as follows: A1: Fallopian tube with entire bisected fimbriae. A2: Ovary. ([id number]) . Additional uniforms sales representative sections are submitted on 03/28/2025 as follows: A3: Remaining fallopian tube. A4: Remaining ovary. ([id number]) /MRV 03/28/2025 1343 Local . 01 Pathologist provided ICD-10: Z40.02 . 01 CPT . 670571 Specimen Comment: A courtesy copy of this report has been sent to [facility] Performed at: [address] [address], [place], [place] [id number] MD Bib Levy MD Phone: [phone]
--- NOTE | 2025-03-20 07:40 | PM.PREOP ---
Pre-operative Note Interval Note History & Physical reviewed/Exam performed by Physician: Yes Changes to H&P: No
--- NOTE | 2025-03-20 08:52 | SUR.OPER ---
Lithotomy on padded OR bed. Kenneth Pad Positioner under torso. Head on pillow, arms padded and tucked at sides. Legs secured in padded yellow fins stirrups. Final positioning done by provider
[2025-03-20] MEDS: LIDOCAINE 1% 20 ML INJ (10:49)
[2025-03-20] MEDS: LACTATED RINGERS 1,000 ML 42 ML IV (11:10)
--- NOTE | 2025-03-20 12:11 | P.OP_ITS ---
Operative Date/Time/Diagnoses Date of procedure: 03/20/25 Time of procedure: 08:00 Pre-op diagnosis: Vaginal vault prolapse, cystocele, rectocele, prophylactic oophorectomy, urinary incontinence Post-op diagnosis: same Procedure & Clinicians Procedure: Procedures Operation Date: 03/20/25 07:45 Actual Procedure Side Surgeon p Robotic Laparoscopic Sacral Colpopexy, left salpingoooporectomy, Josiah Mclain MD s Posterior Colporrhaphy, transvaginal sling, cystoscopy Josiah Mclain MD Operative Notes Findings: Operative Note Surgeon:? Josiah Mclain MD Lawn Service Manager:?? Jennifer Palomo MD Pre-Op Diagnosis:?? Vaginal vault prolapse, cystocele, rectocele Prophylactic oophorectomy, for family history ovarian cancer Urinary incontinence with prior mid urethral sling Post-Op Diagnosis:?? same Stress incontinence Procedure:?? Robotic assisted laparoscopic sacral colpopexy, Robotic laparoscopic left salpingo-oophorectomy TVT mid urethral sling Posterior colpoperineorrhaphy Cystoscopy Findings (brief): 1. 5 ports, usual fashion. Prior hysterectomy and right salpingo- oophorectomy. Normal left ovary and tube, removed. Some adhesions in the right lower quadrant, not impacting the case, on the right abdominal sidewall? 2.? Vertessa Lite Y- mesh cut to 5 cm Ant and 7 cm Post, attached to vagina with sutures of 2-0 vicyrl.?? Excellent support of all 3 compartments.? 3. Cystoscopy with normal bladder, ureter, urethra, no injury, bilateral ureteral jets. 4. With 150 cc in the bladder, a crede maneuver was done and demonstrated leakage of fluid from the urethra. Therefore stress incontinence was diagnosed. Therefore she needed a repeat mid urethral sling. 5. TVT sling placed at mid-urethra, tension-free.??During the dissection, the prior sling was encountered. It was located at the distal urethra instead of the mid or proximal urethra. This is probably why it was no longer working as it had moved out of position to support the urethra properly. The new sling was able to be placed without needing to remove the old sling. The new sling was placed just proximal to the prior sling, at the level of the mid urethra. Cystoscopy with normal bladder, ureters, urethra, no trocar injury, bilateral ureteral jets.? 6. There was a residual distal rectocele and perineal defect, with separation of the levator muscles. The vaginal caliber was 3 fingers. Posterior colporrha phy perineorrhaphy was done in the usual fashion. Vaginal Caliber narrowed from 3 to 2 fingers. Date of Surgery:? Mar 20, 2025 Complications:? none Specimens:? Left tube and ovary Anesthesia Technique:?? General endotracheal Estimated Blood Loss (mls):? 50 Blood Replacement (mls):? [none] Drains:? Calderón Condition:? Stable Procedure in detail: After consent was confirmed, the patient was taken to the operating room and?positioned with the [place] Pad on the OR bed, and then placed under general anesthesia without incident. ?Sequential compression devices were in place and active. ?She received perioperative antibiotics. ?The arms were tucked and her legs were placed in the dorsal lithotomy position using the Jaxon stirrups. ??She was then prepped and draped in the usual sterile fashion. ?An examination under anesthesia was consistent with the preoperative assessment. ?A three-way 16 palestinian calderón catheter was placed. ?Attention was turned to the abdomen. All 5 trocar sites were injected with 0.25% Marcaine with epinephrine prior to incision. A supra- umbilical 8?mm port was placed 2-3 cm above the umbilicus: a 8?mm incision was made, the Veress needle was placed, and pneumoperitoneum was achieved at low flow of 5, reaching a pressure of about 12, with 2-3 liters of CO2 gas. ?The abdominal wall was tented out to avoid any injury to underlying structures, and the trocar was introduced into the abdomen with ease, flow turned up to 40, pressure set at 12. ??Three?additional 8 mm robotic ports were placed, along the same line across the abdomen: ?? right lateral abdomen, left mid abdomen, left lateral abdomen,?under direct visualization atraumatically.??An additional occupational therapist assistant 8 mm port was placed in the RUQ.?The patient was placed into steep Trendelenberg. ?The DV5?robot was Docked from a side-dock approach, using 3 arms. ?During the dissection, monopolar scissors and bipolar [place]?forceps were used, and during suturing, these were replaced with 2 needle drivers. ?The Urtak grasper was used at the 3rd arm for surgical assistance. ?The 4th port was for the surgical instrument repair specialist (passing sutures and suction / irrigation). ?At this point, I went to the robotic console to operate the robot.? Findings as noted above. Prior hysterectomy, prior right salpingo- oophorectomy. Normal left ovary and tube, removed later. ?The sigmoid was retracted, and the sacral promontory was identified, and the ureters were identifed lateral to the intended surgical planes.? The bladder was dissected off the vagina for a distance of 5 cm, and the vagina was dissected off the posterior peritoneum, most of the way down the posterior vagina, approx 7 cm. ??The [facility]hishe[facility] Surgical Sacral Colpopexy tip with the Georgette Arch was used to expose the vagina for dissection. ?Retrograde fill of the bladder facilitated the dissection. ?The peritoneum over the sacral promontory was incised and the dissection was carried down into the pelvis. ?The loose areolar connective tissue overlying the sacral promontory was dissected until the sacrum was clearly identified. ?The anterior arm of the Y-polypropylene mesh was fashioned as noted above, and sutured to the anterior vagina with several interrupted 2-0 vicryl sutures. ?The posterior arm of the mesh was fashioned as noted above, and sutured to the posterior vagina with several interrupted 2-0 vicryl sutures. ?The mesh tail was grasped to create a Y shape, cut to the appropriate length, and then attached to the sacral promontory in a tension-free manner, using 2 sutures of 2-0 Ethibond (permanent suture). The sacral peritoneum was closed over the mesh with a running 2-0 PDS / V-Lock suture, and then continued to close the peritoneum over the vaginal part of the mesh. The left ovary and fallopian tube were identified. The left fallopian tube was grasped. Cautery was used on the left ovarian artery and vein and these w ere then cut. The tube and ovary were dissected off of the left pelvic sidewall using cautery, with good hemostasis. The left ovary was cut into 2 pieces and each piece was removed through the 8 mm occupational therapist assistant port. Then the left tube was removed through the same port. The specimens were passed off the field. I left the console and scrubbed and gowned and returned to the OR table. The robot was undocked.? All port sites were inspected for hemostasis, and pneumoperitoneum released. The skin incisions were reapproximated with 4-0 monocryl, and then dermabond was placed. ?Attention was turned to the remainder of the vagina where excellent apical support was appreciated. ?Cystourethroscopy was performed which revealed bilateral ureteral efflux of pyridium and no evidence of injury or suture material within the bladder urethra. As noted above, With 150 cc in the bladder, a crede maneuver was done and demonstrated leakage of fluid from the urethra. Therefore stress incontinence was diagnosed. Therefore she needed a repeat mid urethral sling. With the Calderón catheter in place, the anterior vaginal mucosa beneath and lat eral to the urethra was injected with 10-20 cc of? 0.5% lidocaine / epinephrine 1:200,000.? A 3 cm midline incision was made at the level of the midurethra with a scapel. Metzenbaum scissors were used to dissect the vagina from the urethra and then create tunnels beneath the vaginal mucosa up toward the pubic bone on each side.??During the dissection, the prior sling was encountered. It was located at the distal urethra instead of the mid or proximal urethra. This is probably why it was no longer working as it had moved out of position to support the urethra properly. The new sling was able to be placed without needing to remove the old sling. The new sling was placed just proximal to the prior sling, at the level of the mid urethra. A marking pen was used to wesley the skin just above the pubic bone and 2 cm from the midline bilaterally, and two small 8-10 mm incisions were made on the suprapubic skin.? The trocar was passed from the right vaginal tunnel, behind the pubic bone, to the right suprapubic incision, and this was repeated on the left side.? The Calderón catheter was removed, and cystoscopy was performed with a 70 degree lens. There was no trocar injury, and the bladder, ureters, and urethra were normal.? The Calderón catheter was reinserted.? The sling was pulled into position in a tension-free manner, and a Brea clamp was easily passed between the sling and the urethra.? The plastic sheaths were removed to anchor the sling, and tension was checked again. The ends of the sling were trimmed just below the skin, and the skin incisions were cleaned and closed with dermabond. The vaginal incision was closed with 2-0 vicryl in a running fashion. ? Attention was then turned to the posterior vaginal wall. The posterior vaginal mucosa was grasped with Allis clamps and was injected with 10- 20 cc of 0.5% lidocaine / epinephrine 1:200,000.? A krys-shaped incision was made at the posterior vaginal introitus over the distal vaginal mucosa and perineal skin, and this skin / mucosa was dissected off of the perineal body.? A midline incision was continued up the posterior vaginal mucosa with the Metzenbaum scissors. The vaginal mucosa was dissected off of the underlying rectovaginal fascia / rectum until the side ramsey were reached.?? The posterior vaginal levators were plicated with horizontal mattress sutures of 2-0 vicryl.? A rectal exam was performed during the placement of the sutures to avoid rectal injury.? No sutures were noted in the rectum at the end of the procedure.? Excess posterior vaginal mucosa was trimmed and the incision was closed with 2-0 vicryl.? A perineorrhaphy was performed with 2-0 vicryl suture.? Hemostasis was noted. Sponge, needle and instrument count was correct.? The patient tolerated the procedure well and was taken to the recovery room in stable condition. An additional set of hands was needed to perform the surgery, so a surgical instrument repair specialist was needed for the case. The occupational therapist assistant provided retraction and exposure throughout the case. Josiah Mclain MD UroGynecology & Pelvic Reconstructive Surgery [place], [place] Applied: implant(s) (TVT sling, Vertessa Lite Y mesh)
[2025-03-20] MEDS: ONDANSETRON 4 MG/2 ML INJ IV (12:18)
[2025-03-20] MEDS: METOCLOPRAMIDE 10 MG/2 ML INJ IV (12:18)
[2025-03-20] MEDS: SCOPOLAMINE 1 PATCH TOP (12:24)
[2025-03-20] MEDS: ACETAMINOPHEN IV 1,000 MG/100 ML VIAL 400 MG IV (12:25)
--- NOTE | 2025-03-20 14:14 | SUR.PHASEII ---
200cc's NS instilled. Pt unable to tolerate any more. assisted to bathroom
== END 2025-03-20 14:27 | disposition home or self-care (01) ==
LOC: OR 06:46 → AC 07:24
PROVIDERS: PCP Family Medicine; Referring Provider Family Medicine; Visit Provider Obstetrics & Gynecology Gynecology
PROC: 0USG4ZZ Reposition Vagina, Percutaneous Endoscopic Approach (ICD-10-PCS; CPT 57425; principal; 2025-03-20 07:45)
PROC: (CPT 57425; 2025-03-20 07:45)
DX: N81.9 Female genital prolapse, unspecified (principal); N83.8 Other noninflammatory disorders of ovary, fallopian tube and broad ligament; N81.11 Cystocele, midline; N81.6 Rectocele; N39.3 Stress incontinence (female) (male); Z40.02 Encounter for prophylactic removal of ovary(s); K21.9 Gastro-esophageal reflux disease without esophagitis; Z80.41 Family history of malignant neoplasm of ovary
CPT/HCPCS: 57425; 58661; 57288; 57250; 82962; S2900; C1771; C1781; J0131; J0689; J1100; J1885; J2405; J2704; J2765; J3010; J3490; J7120